=== PATIENT | female | born 1955 | race Caucasian/White ===

== ENCOUNTER → 2018-08-30 | Outpatient (CLI) | payer OTHER ==
[~2018-08-30] MED LIST: ACET-1966 PO; ATOR20TA65 PO; CALC1TAB32 PO; CLON-331 PO; CLON-388 PO; CYCL-332 PO; DESV50TA9 PO; IBUP-136 PO; IBUP-1618 PO; LOR5 PO; MULT-865 PO; OXYC-865 PO; TRA50 PO; TRAM-429 PO; ZOST19404 SQ; [UNRECOGNIZED DRUG - CODE] PO
[2018-08-30 12:11] LABS: PLATELET COUNT, AUTOMATED 294 K/uL (150-450)
== END ==
LOC: LAB 11:46
PROVIDERS: ATTEND Emergency Medicine
DX: E78.5 Hyperlipidemia, unspecified (principal); G62.9 Polyneuropathy, unspecified
CPT/HCPCS: 36415; 82465; 83718; 84478; 85025

== ENCOUNTER → 2018-10-12 | Outpatient (CLI) | payer OTHER ==
[~2018-10-12] MED LIST changes: +ATOR40TA69 PO
== END ==
LOC: LAB 11:45
PROVIDERS: ATTEND Emergency Medicine
DX: E78.00 Pure hypercholesterolemia, unspecified (principal)
CPT/HCPCS: 36415; 82465; 83718; 84478